=== PATIENT | male | born 1995 | race American Indian/Alaskan Native ===

== ENCOUNTER 2018-12-17 03:18 | Emergency (ER) | payer SELFPAY ==
[2018-12-17 03:28] VITALS: BP 157/83
[2018-12-17] MEDS ORDERED: PERCOCET 5/325 PO STA (04:07)
[2018-12-17] MEDS ORDERED: ZOFRAN ODT PO ONE (04:07)
--- NOTE | 2018-12-17 05:11 | Emergency Department Report ---
- General Chief Complaint: Headache Stated Complaint: MIGRAINE PAIN COUGH Time Seen by Provider: 12/17/18 04:06 Source: patient Mode of arrival: Ambulatory Limitations: No Limitations - History of Present Illness Initial Comments: 23-year-old -[place]er male to emergency Department complaining of a 2 day history of cough with yellowish green sputum production, coryza and a dull throbbing headache associated with a sore throat. Complains of having a migraine onset this is old. Reports no chest pain or palpitations. No diarrhea or constipation in the Josiane is no hematochezia. No foreign travel, no known sick contacts. MD Complaint: cough, rhinorrhea, nasal congestion -: Gradual Quality: dull Consistency: constant Improves With: nothing Worsens With: nothing Context: sick contacts Associated Symptoms: rhinorrhea, nasal congestion, sore throat. denies: chest pain, shortness of breath, abdominal pain, vomiting, diarrhea, confusion, right sweats, weight loss, epistaxis, hoarseness Treatments Prior to Arrival: none - Related Data Allergies Allergy/AdvReac Type Severity Reaction Status Date / Time No Known Allergies Allergy Verified 12/17/18 03:28 ED Review of Systems ROS: Stated complaint: MIGRAINE PAIN COUGH Other details as noted in HPI Constitutional: denies: chills, fever Eyes: denies: eye pain, eye discharge, vision change ENT: denies: ear pain, throat pain Respiratory: denies: cough, shortness of breath, wheezing Cardiovascular: denies: chest pain, palpitations Endocrine: no symptoms reported Gastrointestinal: denies: abdominal pain, nausea, diarrhea Genitourinary: denies: urgency, dysuria Musculoskeletal: denies: back pain, joint swelling, arthralgia Skin: denies: rash, lesions Neurological: denies: headache, weakness, paresthesias Psychiatric: denies: anxiety, depression Hematological/Lymphatic: denies: easy bleeding, easy bruising ED Past Medical Hx - Past Medical History Previous Medical History?: No - Surgical History Past Surgical History?: No - Social History Smoking Status: Current Every Day Smoker Substance Use Type: Marijuana ED Physical Exam - General Limitations: No Limitations General appearance: alert, in no apparent distress - Head Head exam: Present: atraumatic, normocephalic - Eye Eye exam: Present: normal appearance, PERRL, EOMI Pupils: Present: normal accommodation, other (dianna fundus exam ) - ENT ENT exam: Present: normal exam, mucous membranes moist - Neck Neck exam: Present: normal inspection, full ROM - Respiratory Respiratory exam: Present: normal lung sounds bilaterally. Absent: respiratory distress, wheezes, rales, rhonchi, stridor, chest wall tenderness - Cardiovascular Cardiovascular Exam: Present: regular rate, normal rhythm, normal heart sounds. Absent: systolic murmur, diastolic murmur, rubs, gallop - GI/Abdominal GI/Abdominal exam: Present: soft, normal bowel sounds. Absent: tenderness, guarding - Rectal Rectal exam: Present: deferred - Extremities Exam Extremities exam: Present: normal inspection - Back Exam Back exam: Present: normal inspection - Neurological Exam Neurological exam: Present: alert, oriented X3, CN II-XII intact, normal gait, other - Psychiatric Psychiatric exam: Present: normal affect, normal mood - Skin Skin exam: Present: warm, dry, intact, normal color. Absent: rash ED Course Vital Signs 12/17/18 03:24 Temperature 98.3 F Pulse Rate 103 H Respiratory 18 Rate Blood Pressure 157/83 O2 Sat by Pulse 96 Oximetry ED Medical Decision Making - Medical Decision Making I discussed with patient the URI aches, pains and headaches as well. After his pain medication as the [place] was ambulating around the emergency department frequently with no signs of distress or limitations. He tolerated oral with no complications and had minimal coughing. Critical care attestation.: If time is entered above; I have spent that time in minutes in the direct care of this critically ill patient, excluding procedure time. ED Disposition Clinical Impression: Cough, URI (upper respiratory infection), Cephalgia Disposition: TO HOME OR SELFCARE Is pt being admited?: No Does the pt Need Aspirin: No Condition: Stable Instructions: Upper Respiratory Infection (ED), Cold Symptoms (ED) Referrals: BUD RIOS MD [Primary Care Provider] - 3-5 Days
== END 2018-12-17 05:00 | disposition home or self-care (01) ==
LOC: ED 03:18
DX: J06.9 Acute upper respiratory infection, unspecified (principal); R51 Headache; F17.200 Nicotine dependence, unspecified, uncomplicated; F12.10 Cannabis abuse, uncomplicated
CPT/HCPCS: 99282; Q0162

== ENCOUNTER 2018-12-19 13:18 | Emergency (ER) | payer SELFPAY ==
[2018-12-19] MEDS ORDERED: TESSALON PERLES PO ONE (14:02)
[2018-12-19] MEDS ORDERED: TORADOL IM ONE (14:02)
--- NOTE | 2018-12-19 14:06 | Emergency Department Report ---
Minor Respiratory - HPI Chief Complaint: Upper Respiratory Infection Stated Complaint: MIGRAINE/COLD SX/CHEST PAIN Duration: 4 Days Pain Location: Chest Severity: moderate Minor Respiratory: Yes Able to Tolerate Fluids, Yes Cough, Yes Chest Pain, No Rhinorrhea, No Sore Throat, No Ear Pain, No Sick Contacts, No Hemoptysis, No Shortness of Breath, No Fever Other History: This is a 23-year-old -[place]og[place] male presents with headache, cough, and chest discomfort for 4 days. Patient states he wakes up in the morning with chills and sweats. He is currently taking [id number] cold and flu medication and NSAIDs with no improvement of symptoms. He also complains of myalgia. Patient reports the last medication was taken yesterday. He reports the headache is around bilateral temples and behind ears. There is a throbbing sensation that is constant for 48 hours. He denies shortness of breath, nausea or vomiting, or diarrhea. ED Review of Systems ROS: Stated complaint: MIGRAINE/COLD SX/CHEST PAIN Other details as noted in HPI Constitutional: chills. denies: fever ENT: denies: ear pain, throat pain Respiratory: cough. denies: shortness of breath, wheezing Cardiovascular: denies: chest pain (chest discomfort with cough), palpitations Endocrine: no symptoms reported Gastrointestinal: denies: abdominal pain, nausea, diarrhea Musculoskeletal: myalgia Skin: denies: rash, lesions Neurological: headache. denies: weakness, paresthesias Psychiatric: denies: anxiety, depression ED Past Medical Hx - Past Medical History Previous Medical History?: No - Surgical History Past Surgical History?: No - Social History Smoking Status: Never Smoker Substance Use Type: None - Medications Home Medications: Home Medications Medication Instructions Recorded Confirmed Last Taken Type ALBUTEROL Inhaler(NF) [VENTOLIN 1 puff IH Q4-6H PRN #1 inha 12/19/18 Unknown Rx Inhaler(NF)] Azithromycin [Zithromax Z-VERONICA] 250 mg PO DAILY #6 tablet 12/19/18 Unknown Rx Benzonatate [Tessalon Perles] 100 mg PO Q8HR PRN #30 capsule 12/19/18 Unknown Rx Minor Respiratory Exam - Exam General: Vital signs noted. No distress. Alert and acting appropriately. HEENT: Yes Pharyngeal Erythema (erythematous posterior pharynx, uvula midline), Yes Moist Mucous Membranes, Yes Rhinorrhea (turbinates mildly congested with clear discharge), No Pharyngeal Exudates, No Conjuctival Injection, No Frontal Tenderness, No Maxillary Tenderness Ear: Neither TM Bulge, Neither TM Erythema, Neither EAC Pain, Neither EAC Discharge Neck: Yes Supple, No Adenopathy Lungs: Yes Good Air Exchange, Yes Cough, No Wheezes, No Ronchi, No Stridor, No Labored Respirations, No Retractions, No Use of Accessory Muscles, No Other Abnormal Lung Sounds Heart: Yes Regular, No Murmur Abdomen: Yes Normal Bowel Sounds, No Tenderness, No Peritoneal Signs Skin: No Rash, No Edema Neurologic: Alert and oriented, no deficits. Musculoskeletal: Unremarkable. ED Course Vital Signs 12/19/18 13:26 Temperature 98.8 F Pulse Rate 103 H Respiratory 20 Rate Blood Pressure 138/72 O2 Sat by Pulse 96 Oximetry ED Medical Decision Making - Radiology Data Radiology results: report reviewed CHEST 2 VIEWS INDICATION: Substernal chest discomfort. COMPARISON: None similar at this institution. FINDINGS: PA and lateral chest radiographs demonstrate somewhat limited inspiration with slight exaggerated cardiomediastinal silhouette. Right hemidiaphragm approximately 2 cm higher than the left. Subtle approximately 5 cm right midlung opacity/pneumonia suspected above the level of the hilum. Clear remainder lungs without pleural effusions or CHF. Intact bones. CONCLUSION: Subtle right mid lung pneumonia suspected, as described. - Medical Decision Making This is a 23 y.o. male cough and congestion for 4 days. Patient is stable and was examined by me. Patient does not seem toxic or ill in appearance. No acute signs of distress noted. Vitals stable. Chest xray has been obtained and dictated by radiologist. Subtle right mid lung pneumonia suspected, as described. Patient notified of x-ray results of pneumonia. He agrees to the ED plan of care to treat outpatient. No further questions noted. Discharged home with azithromycin, referrals, in albuterol inhaler. Follow up with [facility] in 24-48 hours. Critical care attestation.: If time is entered above; I have spent that time in minutes in the direct care of this critically ill patient, excluding procedure time. ED Disposition Clinical Impression: Cough in adult Pneumonia Qualifiers: Pneumonia type: due to Mycoplasma pneumoniae Laterality: right Lung location: middle lobe of lung Qualified Code(s): J15.7 - Pneumonia due to Mycoplasma pneumoniae Disposition: DC-01 TO HOME OR SELFCARE Is pt being admited?: No Does the pt Need Aspirin: No Condition: Stable Instructions: Bacterial Pneumonia (ED) Additional Instructions: Complete full course of medication as prescribed. Follow up with [facility] in 48-72 hours. Increase fluids to prevent dehydration. Avoid smoking and rest. Prescriptions: ALBUTEROL Inhaler(NF) [VENTOLIN Inhaler(NF)] 1 puff IH Q4-6H PRN #1 inha PRN Reason: Shortness Of Breath Azithromycin [Zithromax Z-VERONICA] 250 mg PO DAILY #6 tablet Benzonatate [Tessalon Perles] 100 mg PO Q8HR PRN #30 capsule PRN Reason: Cough Referrals: GUERDA TILLMAN MD [Primary Care Provider] - 3-5 Days [facility] [Outside] - 3-5 Days [facility] [Outside] - 3-5 Days Time of Disposition: 14:57
--- NOTE | 2018-12-19 14:24 | XRay Report ---
CHEST 2 VIEWS INDICATION: Substernal chest discomfort. COMPARISON: None similar at this institution. FINDINGS: PA and lateral chest radiographs demonstrate somewhat limited inspiration with slight exaggerated cardiomediastinal silhouette. Right hemidiaphragm approximately 2 cm higher than the left. Subtle approximately 5 cm right midlung opacity/pneumonia suspected above the level of the hilum. Clear remainder lungs without pleural effusions or CHF. Intact bones. CONCLUSION: Subtle right mid lung pneumonia suspected, as described. Thank you for the opportunity to participate in this patient's care.
[2018-12-21 12:12] VITALS: BP 138/72
== END 2018-12-19 15:06 | disposition home or self-care (01) ==
LOC: ED 13:18
DX: J15.7 Pneumonia due to Mycoplasma pneumoniae (principal)
CPT/HCPCS: 71046; 96372; 99283; J1885

== ENCOUNTER 2018-12-25 10:55 | Emergency (ER) | payer SELFPAY ==
[2018-12-25 11:03] VITALS: BP 137/68
--- NOTE | 2018-12-25 11:05 | Emergency Department Report ---
Blank Doc - Documentation Documentation: This is a 23-year-old male that presents for Z-pack refill. Stated was diagno sed with PNA in last week. Patient stated feels better but he missed 2 pills. Will repeat chest xray Patient put to [facility] for further evaluation.
--- NOTE | 2018-12-25 11:40 | XRay Report ---
ROUTINE CHEST, TWO VIEWS: HISTORY: Cough. The trachea, heart, mediastinal contour, lung veras and bony thorax are unremarkable. Subtle air space opacity in the right upper lobe has resolved since 12/19/18. IMPRESSION: Unremarkable chest x-ray.
--- NOTE | 2018-12-25 11:48 | Emergency Department Report ---
ED Recheck HPI - General Chief Complaint: Medical Clearance Stated Complaint: MED REFILL Time Seen by Provider: 12/25/18 11:05 Source: patient Mode of arrival: Ambulatory Limitations: No Limitations - History of Present Illness Initial Comments: 23-year-old male nontoxic will in appearance that presents with medication refill. Patient stated was diagnosed with PNA and after taking the first dose of antibiotics he throw it up. Patient stated that other doses he finished. Patient denies any complaints now. Denies any cough, chest pain, shortness of breathe, fever, chills, headache, nausea or vomiting. MD Complaint: medication refill request Symptoms Since Prior Visit: no new symptoms, improved Associated Symptoms: none. denies: fever, chills, chest pain, shortness of breath, rash, malaise, nasuea, abdominal pain - Related Data Previous Rx's Medication Instructions Recorded Last Taken Type ALBUTEROL Inhaler(NF) [VENTOLIN 1 puff IH Q4-6H PRN #1 inha 12/19/18 Unknown Rx Inhaler(NF)] Azithromycin [Zithromax Z-VERONICA] 250 mg PO DAILY #6 tablet 12/19/18 Unknown Rx Benzonatate [Tessalon Perles] 100 mg PO Q8HR PRN #30 capsule 12/19/18 Unknown Rx Allergies Allergy/AdvReac Type Severity Reaction Status Date / Time No Known Allergies Allergy Verified 12/25/18 10:56 ED Review of Systems ROS: Stated complaint: MED REFILL Other details as noted in HPI Constitutional: denies: chills, fever Eyes: denies: eye pain, eye discharge, vision change ENT: denies: ear pain, throat pain Respiratory: denies: cough, shortness of breath, wheezing Cardiovascular: denies: chest pain, palpitations Endocrine: no symptoms reported Gastrointestinal: denies: abdominal pain, nausea, diarrhea Genitourinary: denies: urgency, dysuria Musculoskeletal: denies: back pain, joint swelling, arthralgia Skin: denies: rash, lesions Neurological: denies: headache, weakness, paresthesias Psychiatric: denies: anxiety, depression Hematological/Lymphatic: denies: easy bleeding, easy bruising ED Past Medical Hx - Social History Smoking Status: Never Smoker Substance Use Type: Marijuana - Medications Home Medications: Home Medications Medication Instructions Recorded Confirmed Last Taken Type ALBUTEROL Inhaler(NF) [VENTOLIN 1 puff IH Q4-6H PRN #1 inha 12/19/18 Unknown Rx Inhaler(NF)] Azithromycin [Zithromax Z-VERONICA] 250 mg PO DAILY #6 tablet 12/19/18 Unknown Rx Benzonatate [Tessalon Perles] 100 mg PO Q8HR PRN #30 capsule 12/19/18 Unknown Rx ED Physical Exam - General Limitations: No Limitations General appearance: alert, in no apparent distress - Head Head exam: Present: atraumatic, normocephalic - Eye Eye exam: Present: normal appearance - Neck Neck exam: Present: normal inspection, full ROM - Respiratory Respiratory exam: Present: normal lung sounds bilaterally. Absent: respiratory distress, wheezes, rales, rhonchi, stridor, chest wall tenderness, accessory muscle use, decreased breath sounds, prolonged expiratory - Cardiovascular Cardiovascular Exam: Present: regular rate, normal rhythm, normal heart sounds. Absent: bradycardia, tachycardia, irregular rhythm, systolic murmur, diastolic murmur, rubs, gallop - Back Exam Back exam: Present: normal inspection, full ROM - Neurological Exam Neurological exam: Present: alert, oriented X3 - Psychiatric Psychiatric exam: Present: normal affect, normal mood - Skin Skin exam: Present: warm, dry, intact, normal color. Absent: rash ED Course Vital Signs 12/25/18 11:02 Temperature 97.4 F L Pulse Rate 89 Respiratory 16 Rate Blood Pressure 137/68 O2 Sat by Pulse 98 Oximetry - Reevaluation(s) Reevaluation #1: 12/25/18 11:46 Patient is speaking in full sentences with no signs of distress. ED Recheck MDM - Medical Decision Making Chest xray normal. VItal signs normal. No cough. Critical care attestation.: If time is entered above; I have spent that time in minutes in the direct care of this critically ill patient, excluding procedure time. ED Disposition Clinical Impression: Feeling worried, Medication refill Disposition: - TO HOME OR SELFCARE Is pt being admited?: No Does the pt Need Aspirin: No Condition: Stable Additional Instructions: Follow-up with primary care doctor in 3-5 days or if symptoms worsen and continue return to the ED Your chest xray is normal. No need for antibiotics refill. Referrals: PRIMARY CARE, [Referring] - 3-5 Days GUERDA HERNANDEZ MD [Staff Physician] - 3-5 Days [facility] [Outside] - 3-5 Days Forms: Work/School Release Form(ED)
== END 2018-12-25 13:07 | disposition home or self-care (01) ==
LOC: ED 10:55
DX: Z76.0 Encounter for issue of repeat prescription (principal); R45.82 Worries; F12.10 Cannabis abuse, uncomplicated
CPT/HCPCS: 71046

== ENCOUNTER 2019-06-13 09:42 | Emergency (ER) | payer SELFPAY ==
[2019-06-13 09:51] VITALS: BP 123/56
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
== END 2019-06-13 10:29 | disposition home or self-care (01) ==
LOC: ED 09:42
DX: S39.012A Strain of muscle, fascia and tendon of lower back, initial encounter (principal); S16.1XXA Strain of muscle, fascia and tendon at neck level, initial encounter; F17.200 Nicotine dependence, unspecified, uncomplicated; Z79.899 Other long term (current) drug therapy; V49.49XA Driver injured in collision with other motor vehicles in traffic accident, initial encounter; Y93.89 Activity, other specified; Y92.89 Other specified places as the place of occurrence of the external cause; Y99.8 Other external cause status